=== PATIENT | male | born 1975 | race Caucasian/White ===

== ENCOUNTER 2019-05-04 11:21 | Day surgery (SDC) | payer OTHER ==
[~2019-05-04] VITALS: Ht 180.3 cm; Wt 103.8 kg
[~2019-05-04 11:21] MED LIST: CEPH500 PO; GLIM4 PO; INSULANPEN; LISI20 PO; LORA10 PO; METF500 PO; PROAIR RESPICL90 MCG IH; Pyridium200 MG PO; QVAR7.3 GM IH; RANI150 PO; SERT100 PO
[2019-05-04] MEDS ORDERED: ESOM20 (12:07)
[2019-05-04] MEDS ORDERED: TRULICITY0.75 MG/0. (12:07)
--- NOTE | 2019-05-04 13:31 | NUR ---
05/04/[address] AWARE OF CBG 126 AT 1305 OK TO DC
== END 2019-05-04 13:14 | disposition home or self-care (01) ==
LOC: ORSCSDS 11:21
PROVIDERS: Internal Medicine Gastroenterology
PROC: 0DBM8ZX Excision of Descending Colon, Via Natural or Artificial Opening Endoscopic, Diagnostic (ICD-10-PCS; principal; 2019-05-04 12:30)
PROC: 0DBP8ZX Excision of Rectum, Via Natural or Artificial Opening Endoscopic, Diagnostic (ICD-10-PCS; principal; 2019-05-04 12:30)
PROC: 0DBK8ZX Excision of Ascending Colon, Via Natural or Artificial Opening Endoscopic, Diagnostic (ICD-10-PCS; principal; 2019-05-04 12:30)
DX: Z12.11 Encounter for screening for malignant neoplasm of colon (principal); Z80.0 Family history of malignant neoplasm of digestive organs; D12.2 Benign neoplasm of ascending colon; D12.4 Benign neoplasm of descending colon; K62.1 Rectal polyp; K64.8 Other hemorrhoids; E11.9 Type 2 diabetes mellitus without complications; J45.909 Unspecified asthma, uncomplicated; K21.9 Gastro-esophageal reflux disease without esophagitis; I10 Essential (primary) hypertension; Z87.891 Personal history of nicotine dependence; Z79.84 Long term (current) use of oral hypoglycemic drugs; Z79.4 Long term (current) use of insulin; Z79.899 Other long term (current) drug therapy
CPT/HCPCS: 82947; 88305; J2704; J7120; J7799